=== PATIENT | female | born 1970 | race African-American/Black ===

== ENCOUNTER 2021-07-31 23:33 | Emergency (ER) | payer OTHER ==
[~2021-07-31] VITALS: Ht 180.3 cm; Wt 120.7 kg
[2021-07-31 23:40] VITALS: BP_SYST 157
[2021-08-01] MEDS ORDERED: BACI15OI13 TP (02:06)
[2021-08-01] MEDS ORDERED: BACITRACIN ZINC 15 GM TOPICAL OINTMENT TP ONE (02:15)
[2021-08-01] MEDS ORDERED: DIPH-TET-PERTUS Vaccine 0.5 ML VIAL (ADACEL) I.M. ONE (02:15)
[2021-08-01] MEDS ORDERED: BACITRACIN 1 GM OINT TP ONE (03:46)
[2021-08-01 04:01] VITALS: BP_SYST 128
== END 2021-08-01 03:58 | disposition home or self-care (01) ==
LOC: SED 23:33
DX: S90.411A Abrasion, right great toe, initial encounter (principal); Z79.899 Other long term (current) drug therapy; W45.0XXA Nail entering through skin, initial encounter; Y93.89 Activity, other specified; Y92.89 Other specified places as the place of occurrence of the external cause; Y99.8 Other external cause status
CPT/HCPCS: 90715; 99283